=== PATIENT | male | born 1975 | race Caucasian/White ===

== ENCOUNTER 2019-02-21 21:41 | Emergency (ER) | payer SELFPAY ==
--- NOTE | 2019-02-21 21:50 | Emergency Department Record ---
History of Present Illness - General Chief Complaint: Ankle/Foot Injury Stated Complaint: ANKEL INJURY Source: Patient Mode of Arrival: Ambulatory Limitations: No limitations - History of Present Illness Initial Comments: 44 yo male presents to ED for evaluation following an inversion injury of the left ankle while at work this evening. Patient reports that he is still able to weight bear, denies other injury on examination. Patient denies pain over the foot, proximal lower extremity. Patient denies health problems other than GERD and HTN. MD Complaint: Ankle injury Onset/Timin -: Minutes(s) Injury: Ankle: Left Type of Injury: Inversion Place: Work Severity: Moderate Improves With: Nothing Worsens With: Weight bearing Context: Walking - Related Data Home Medications Medication Instructions Recorded Confirmed Last Taken Hydrochlorothiazide [Hctz] 25 mg PO DAILY 02/21/19 02/21/19 02/21/19 Liraglutide [Saxenda] 3 mg SQ DAILY 02/21/19 02/21/19 02/21/19 Lisinopril 40 mg PO DAILY 02/21/19 02/21/19 02/21/19 Metoprolol Succinate [Toprol Xl] 25 mg PO DAILY 02/21/19 02/21/19 02/21/19 Omeprazole [Prilosec] 20 mg PO DAILY 02/21/19 02/21/19 02/21/19 Allergies Allergy/AdvReac Type Severity Reaction Status Date / Time No Known Drug Allergies Allergy Verified 02/21/19 21:45 Review of Systems Constitutional: Denies: Chills, Fever, Malaise, Night sweats Eyes: Denies: Eye discharge, Eye pain ENT: Denies: Congestion, Ear pain, Epistaxis Respiratory: Denies: Cough, Dyspnea Cardiovascular: Denies: Chest pain, Dyspnea on exertion Endocrine: Denies: Fatigue, Heat or cold intolerance Gastrointestinal: Denies: Abdominal pain, Nausea, Vomiting Genitourinary: Denies: Incontinence, Retention Musculoskeletal: Reports: Joint swelling, Myalgia. Denies: Arthralgia, Back pain, Gout Skin: Denies: Bruising, Change in color Neurological: Denies: Abnormal gait, Confusion, Headache, Seizure Psychiatric: Denies: Anxiety Hematological/Lymphatic: Denies: Anemia, Blood Clots Physical Exam - General General Appearance: Alert, Oriented x3, Cooperative, Mild distress Limitations: No limitations - Head Head exam: Atraumatic, Normocephalic, Normal inspection Head exam detail: negative: Abrasion, Contusion, Arenas's sign, General tenderness, Hematoma, Laceration - Eye Eye exam: Normal appearance. negative: Conjunctival injection, Periorbital swelling, Periorbital tenderness, Scleral icterus - ENT Ear exam: negative: Auricular hematoma, Auricular trauma Nasal Exam: negative: Active bleeding, Discharge, Dried blood, Foreign body Mouth exam: negative: Drooling, Laceration, Muffled voice, Tongue elevation - Neck Neck exam: Normal inspection. negative: Meningismus, Tenderness - Respiratory Respiratory exam: Normal lung sounds bilaterally. negative: Rales, Respiratory distress, Rhonchi, Stridor - Cardiovascular Cardiovascular Exam: Regular rate, Normal rhythm, Normal heart sounds Peripheral Pulses: 3+: Dorsalis Pedis (L) - GI/Abdominal GI/Abdominal exam: Soft. negative: Rebound, Rigid, Tenderness - Rectal Rectal exam: Deferred - exam: Deferred - Extremities Extremities exam: Tenderness, Other (TTP with STS to the lateral left ankle, no pain over the foot, achilles intact, no pain over the proximal fibula. Compartments of the lower extremity as soft on examination. Strong DPP.). negative: Calf tenderness, Pedal edema - Back Back exam: Denies: CVA tenderness (R), CVA tenderness (L) - Neurological Neurological exam: Alert, Normal gait, Oriented X3 - Psychiatric Psychiatric exam: Normal affect, Normal mood - Skin Skin exam: Normal color. negative: Abrasion Type of lesion: negative: abrasion Course - Reevaluation(s) Reevaluation #1: 02/21/19 22:19 Left Ankle: No acute fracture Well healed previous lateral malleolus fracture Patient was updated on his radiograph results, will place in air splint with instructions for ice, ibuprofen, and follow-up with his PCP in 3-5 days as directed. Disposition Disposition: Discharge Clinical Impression: Ankle sprain Qualifiers: Encounter type: initial encounter Involved ligament of ankle: anterior talofibular ligament Laterality: left Qualified Code(s): S93.492A - Sprain of other ligament of left ankle, initial encounter Disposition: Home, Self-Care Condition: (2) Stable Instructions: Ankle Sprain (ED) Additional Instructions: Return to ED if your symptoms worsen or if you have any concerns. Ice, ibuprofen as directed. Follow-up with your family doctor in 3-5 days as directed. Forms: Patient Portal Access Time of Disposition: 21:49 Quality - Quality Measures Quality Measures: N/A - Blood Pressure Screening Does Patient Have Any of the Following: No Blood Pressure Classification: Hypertensive Reading Systolic Measurement: 169 Diastolic Measurement: 100 Screening for High Blood Pressure: < First Hypertensive BP, F/U Documented > [ [id number]] First Hypertensive Follow-up Interventions: Referral to alternative/primary care provider.
--- NOTE | 2019-02-24 08:49 | RADIOLOGY REPORT ---
EXAM: LEFT ANKLE HISTORY: TRAUMA. TECHNIQUE: Three views of the left ankle are obtained. FINDINGS: There is evidence of a remote injury to the tip of the lateral malleolus. No acute fractures are seen, but there is soft tissue swelling, laterally more than medially. The ankle mortise is preserved. The talar dome is intact. IMPRESSION: LATERAL SOFT TISSUE SWELLING WITHOUT ASSOCIATED ACUTE FRACTURE. JOB NUMBER: [id number] [facility]
== END 2019-02-21 22:30 | disposition home or self-care (01) ==
LOC: ER 21:41
DX: S93.492A Sprain of other ligament of left ankle, initial encounter (principal); X50.0XXA Overexertion from strenuous movement or load, initial encounter; Y99.0 Civilian activity done for income or pay; I10 Essential (primary) hypertension
CPT/HCPCS: 99283